=== PATIENT | male | born 1980 | race Caucasian/White ===

== ENCOUNTER 2021-09-11 01:31 | Emergency (ER) | payer MEDICAID, OTHER ==
[~2021-09-11] VITALS: Ht 175.3 cm; Wt 65.8 kg
--- NOTE | 2021-09-11 01:40 | NUR ---
BIBSELF C/O GUM STUCK IN THROAT. PT ABLE TO SPEAK IN FULL SENTENCES. LUNGS ARE CLEAR. PLACED COMFORTABLY IN BED 9. VITALS CHECKED. PATIENT NOT ON CP DISTRESS. AAOX4.
--- NOTE | 2021-09-11 03:40 | NUR ---
Patient does not wish to proceed with medical care recommended by Dr. Bass. Patient given information related to possible complications, up to and including , which could occur as a result of leaving the hospital at this time. Patient verbalizes understanding of risks involved due to leaving against medical advice. Patient has signed AMA form.
--- NOTE | 2021-09-11 03:40 | NUR ---
Patient does not wish to proceed with medical care recommended by Dr. ramirez. Patient given information related to possible complications, up to and including , which could occur as a result of leaving the hospital at this time. Patient verbalizes understanding of risks involved due to leaving against medical advice. Patient has signed AMA form.
[2021-09-11 03:41] VITALS: BP 121/60
== END 2021-09-11 03:41 | disposition left against medical advice (07) ==
LOC: ER 01:34
DX: Z71.1 Person with feared health complaint in whom no diagnosis is made (principal)
CPT/HCPCS: 70490-TC; 71250-TC